=== PATIENT | male | born 1960 | race Two or more races ===

== ENCOUNTER 2019-03-10 07:47 | Outpatient (CLI) | payer OTHER | END 2019-03-10 08:09 | disposition home or self-care (01) | LOC: NUCLEAR 07:47 | DX: I25.10 Atherosclerotic heart disease of native coronary artery without angina pectoris (principal); I10 Essential (primary) hypertension; E11.9 Type 2 diabetes mellitus without complications; E78.2 Mixed hyperlipidemia | CPT/HCPCS: 78452; 93017; A9500; J0153 ==

== ENCOUNTER 2022-01-09 08:09 | Outpatient (CLI) | payer OTHER | END 2022-01-09 09:21 | disposition home or self-care (01) | LOC: NUCLEAR 08:09 | DX: I87.2 Venous insufficiency (chronic) (peripheral) (principal) ==

== ENCOUNTER 2022-01-10 11:12 | Outpatient (CLI) | payer OTHER | END 2022-01-10 11:18 | disposition home or self-care (01) | LOC: NUCLEAR 11:12 | DX: G62.9 Polyneuropathy, unspecified (principal) ==